=== PATIENT | male | born 1995 | race African-American/Black ===

== ENCOUNTER 2017-01-31 11:42 | Emergency (ER) | payer SELFPAY ==
[2017-01-31] MEDS ORDERED: Dexamethasone 4 mg/ml Vial ONE (12:52)
== END 2017-01-31 12:56 | disposition home or self-care (01) ==
LOC: ERS 11:42
DX: J02.9 Acute pharyngitis, unspecified (principal); J45.909 Unspecified asthma, uncomplicated; F41.9 Anxiety disorder, unspecified; F17.210 Nicotine dependence, cigarettes, uncomplicated
CPT/HCPCS: 99282; J1100

== ENCOUNTER 2019-06-12 17:32 | Emergency (ER) | payer OTHER, SELFPAY ==
[2019-06-12] MEDS ORDERED: Ibuprofen 200 MG TAB ONE (17:57)
[2019-06-12] MEDS ORDERED: Dexamethasone 4 MG TAB ONE (17:59)
== END 2019-06-12 17:55 | disposition home or self-care (01) ==
LOC: ERS 17:32
DX: J02.0 Streptococcal pharyngitis (principal); J45.909 Unspecified asthma, uncomplicated; F41.9 Anxiety disorder, unspecified; F17.210 Nicotine dependence, cigarettes, uncomplicated
CPT/HCPCS: 99282; J8540

== ENCOUNTER 2021-10-11 10:42 | Emergency (ER) | payer OTHER, SELFPAY | END 2021-10-11 11:05 | disposition home or self-care (01) | LOC: ERS 10:42 | DX: T63.441A Toxic effect of venom of bees, accidental (unintentional), initial encounter (principal); R11.2 Nausea with vomiting, unspecified; F17.210 Nicotine dependence, cigarettes, uncomplicated | CPT/HCPCS: 99283 ==